=== PATIENT | male | born 1935 | race Caucasian/White ===

== ENCOUNTER 2016-11-10 12:00 | Inpatient (IN) | payer MEDICARE, BC ==
[~2016-11-10] VITALS: Ht 160 cm; Wt 70.0 kg
--- NOTE | ~2016-11-10 | CON ---
PATIENT'S NAME: RAKAN MOORE [facility] AGE: 81 Y [address] ROOM: [id number] [place], [place] [address] [place] [facility] [place]: 11/10/2016 Consultation DISCHARGE DATE: FAMILY PHYSICIAN: Jacki Conteh MD ATTENDING PHYSICIAN: Jacki Conteh DATE OF CONSULTATION: 11/12/2016 HISTORY OF PRESENT ILLNESS: The patient was seen on neurologic consultation at 3:00 p.m. on 11/12/2016. Dr. Conteh asked me to see Mr. Moore who is a long-term patient of hers. Maria Guadalupe is actually high functioning elderly patient with normal mentation and no known history of dementia. According to the patient and the he has been having more frequent falls especially over the past 2 to 3 months. He says that he fell about 3 times. He notices that when he tries to get up, he was unstable and lightheaded. Any attempt to start to walk resulted in him falling backwards and losing his balance. Other than some mild dizziness that has been ongoing for about 2 to 3 years according to the , he never had any issues really with his gait per se and never had any significant falls. The patient was admitted for workup for his worsening gait and currently the medication of tamsulosin has been held due to possibility of its anticholinergic effects may have been attributing to some orthostatic lightheadedness and dizziness and his falls. The patient himself denies any problems with dizziness sitting down nor does he have any focal neurologic weakness in his arms or his legs per se. He denies any pain into his neck or into his low back. 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 This operation was successfully performed back on April 19, 2015. The patient states that after the operation, he was actually walking quite well. He denied any problems with his legs being stiff, weak per se, or any problems with change in his use of his arms or his legs. Continue to use his arms in eating, brushing his teeth, etc. Can move his legs adequately in a seating position, and he does not feel particularly stiffen his legs. Today on physical exam, the patient was sitting up in a chair. His mentation was excellent and we adequately walked the patient around the hallway with the aid of his walker. PRIOR MEDICAL HISTORY: He has significant history for hypertension, hyperlipidemia, coronary artery disease, diabetes type 2. He had a history of some multiple surgeries of his bilateral shoulders. Other admissions in the past included admissions for urinary tract infection with fever and confusion back in March of 2015. History of tonsillectomy, appendectomy, bilateral cataract extraction, bilateral total knee arthroplasty, right shoulder surgery, cardiac catheterization back in 2011. PATIENT'S NAME: RAKAN MOORE [facility] AGE: 81 Y [address] ROOM: [place] [address] [place] [facility] [place]: 11/10/2016 Consultation DISCHARGE DATE: FAMILY PHYSICIAN: Jacki Conteh MD ATTENDING PHYSICIAN: Jacki Conteh PAST SURGICAL HISTORY: Prior surgery included in 2009 he had decompressive diskectomy with osteophytectomy C4-C5 and C5-C6. He did well but required decompressive surgery of his cervical spine in March of 2015. 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 MEDICATIONS: Include: 1. Metoprolol 25 mg p.o. daily. 2. Lisinopril 20 mg p.o. daily. 3. Metformin 500 mg p.o. daily. 4. Pantoprazole 40 mg p.o. daily. 5. Ramelteon 8 mg q.h.s. 6. Multivitamin one tablet p.o. b.i.d. 7. Montelukast 10 mg p.o. q.p.m. 8. Docusate sodium 100 mg p.o. q.h.s. 9. Dabigatran 150 mg twice a day. 10. Atorvastatin 80 mg p.o. daily. 11. Sertraline 25 mg p.o. daily. 12. Fluticasone propionate 2 sprays each nostril daily p.r.n. SOCIAL HISTORY: The patient lives at home with his . They have been for 63 years. 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 This caused him to have his shoulder injury. He denies ever smoking. He denies any alcohol use. He says his mother of cancer at 80 years old. His father of a stroke at 62 years old. ALLERGIES: NO KNOWN DRUG ALLERGIES. REVIEW OF SYSTEMS: Maria Guadalupe is an 81-year-old male patient with normal mental status. No evidence of problems with memory loss. His denies that he has any issues with dementia. He has no history of Parkinson disease or extrapyramidal issue. 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 Even some mild dizziness every now and then. Over the past 2 to 3 years, he has been doing well. Over the past month, he has been having falls. His falls are occurring when he is getting up from a chair, trying to get up to use his walker. He states that he had been feeling lightheaded and he simply was falling backwards. Not particular weakness in PATIENT'S NAME: RAKAN MOORE [facility] AGE: 81 Y [address] ROOM: [address] [address] [place] [facility] [place]: 11/10/2016 Consultation DISCHARGE DATE: FAMILY PHYSICIAN: Jacki Conteh MD ATTENDING PHYSICIAN: Jacki Conteh his arms or his legs though he could not justify why this was occurring since he feels strong otherwise in his arms and his legs when using them in a seated position. Denies any frequency of urination or urinary retention. He denies any recent illnesses. Does have a history of urinary tract infections for which he had admission back in 2016. Otherwise, he has been doing well. Endocrine obrien, he has a history of diabetes well controlled on oral medications. The review of systems is within normal limits. PHYSICAL EXAMINATION: GENERAL: Maria Guadalupe is a healthy appearing, well nourished, 81-year-old male, in no acute distress. His mentation is excellent. He answers all questions appropriately. VITAL SIGNS: His pulse is 95 and regular, respirations 18, blood pressure 138/72, temperature 97.8. HEENT: Cranial nerves 2 through 12 are intact. NECK: Supple on flexion and extension. He has no tenderness on palpation. Full movement of his neck on flexion and extension, and side to side. NEUROLOGIC: I do not appreciate any nystagmus on finger eye follow through. He has good normal smooth pursuits of his eyes. His power in his bilateral upper extremities is essentially 5/5, though he has a bit of give-way weakness in the left upper extremity which he claims is due to weakness at the shoulder only. He has mild tenderness at the glenohumeral joint. He has distal power of his hands and forearms that are completely normal with intrinsic muscles showing normal bulk and tone. No fasciculations. Normal hand fruit i farmworker. Extension and flexion of the wrist and fingers are normal. In his torso, he has normal sensory perception throughout. No evidence of any spinal level anesthesia. He has normal sensation to light touch throughout and his lower extremity power. In a sitting position, he has normal tone of his bilateral lower extremities as well as the upper extremities normal tone. Power was symmetric on hip flexion, leg extension, leg flexion. Dorsiflexion and plantar flexion of both feet are normal. Eversion and inversion also of the feet are normal. Reflexes symmetric and +1 at the biceps, triceps, brachioradialis, patellar reflexes. There is no hyporeflexia of the finger flexions. Patellar reflexes +1. Ankle jerk reflexes are +1. Plantar reflexes are neutral. Position sense is intact at the toes and the patient stance with the aid of the nurse and a supporting belt. The patient easily got up from a seated position without any complaints of dizziness. He leaned forward properly and did not take any stance that suggested that he was unstable or falling back. Initially, his gait was slow and somewhat shuffling, but I told him to lift his feet. After doing that, he lifted his feet properly and he was not dragging. Continued to have a normal posture and stance though walking with the aid of a walker. He was able to gain confidence and walk successfully. He had a tendency to look down. I directed him to look forward which gave him more stability, did not appear to be stiff with his gait and there was no scissoring of his lower extremities seen. The PATIENT'S NAME: RAKAN MOORE [facility] AGE: 81 Y [address] ROOM: [place] [address] [place] [facility] [place]: 11/10/2016 Consultation DISCHARGE DATE: FAMILY PHYSICIAN: Jacki Conteh MD ATTENDING PHYSICIAN: Jacki Conteh patient successfully walked through the room and out into the hallways and continued to have a fairly stable stride that increased inability after purposefully lifting his legs when he walks. IMPRESSION: Mr. Moore has a good neurologic exam and his gait right now is fairly good. He did not demonstrate any problems with falling backwards upon getting up from a seat. Immediately, got into a posture of leaning forward which is for stability and though initially slow, he had good stability after purposely not trying to drag his legs. I did not find anything on exam that suggested spasticity, hyperreflexia to suggest the patient has a problem with the cervical spine or other portion or other signs of myelopathy, so I do not believe that he needs any workup concerning the cervical spine. The result of the brain MRI is consistent with the CAT scan showing confluent atrophy of the brain that is likely consistent with the patient having dilated ventricles. The ventricles do not seem to be out of proportionally large to the amount of atrophy of the brain. Though the extent of the atrophy is severe, not necessarily be odd for the patient's age, and I do not believe that this represents underlying brain pathology. His gait impairment probably is transitory and likely associated, I believe, with the possible medication that had been discontinued. The tamsulosin does have anticholinergic effects and it seems that he is doing better since stopping of this medication. He does not have lightheadedness that he had on the previous days prior to coming to this hospital. I would take the conservative approach currently that is underway by Dr. Conteh and have the patient to continue with the physical therapy as he is doing at home. It is hard to say if the patient's accelerated atrophy is a particular pathology. Certainly, if there is in general improvement with time, the generalized atrophy may in some way explain the patient's slow gait with the use of his walker. Nonetheless, would unlikely be reversible with particular treatment such as a high volume tap. Again the ventricles are enlarged but not out of proportion to the severe amounts of atrophy that is seen on the exam. From a standpoint of the patient's mentation, I think it is excellent and I do not believe that he has early findings of dementia as he scored quite well on orientation. Basic events, short-term memory recall, and testing of executive functioning. Continue to follow Mr. Moore on neurologic followup. MD LINDA BABB/jose elias PATIENT'S NAME: RAKAN MOORE [facility] AGE: 81 Y [address] ROOM: [place] [address] [place] [facility] [place]: 11/10/2016 Consultation DISCHARGE DATE: FAMILY PHYSICIAN: Jacki Conteh MD ATTENDING PHYSICIAN: Jacki Conteh /[id number] d: 11/13/16 1823 t: 11/28/16 1639, CONSULTATION REPORT
--- NOTE | ~2016-11-10 | DS ---
PATIENT'S NAME: REAGAN MOORE [facility] AGE: 81 Y [address] ROOM: [id number] [place], [place] [address] [place]ATION: [facility] [place] ADMIT DATE: 11/10/2016 Discharge Summary DISCHARGE DATE: 11/14/2016 FAMILY PHYSICIAN: Jacki Conteh MD ATTENDING PHYSICIAN: Jacki Conteh PRINCIPAL DIAGNOSES: 1. Recurrent falls. 2. Ataxia. 3. Orthostatic hypotension secondary to Flomax. 4. Memory loss. 5. Urinary retention due to benign prostatic hypertrophy. 6. Severe cerebral atrophy. 7. Paroxysmal atrial fibrillation. 8. Hypertension. 9. Coronary artery disease. 10. Adult-onset diabetes. 11. Degenerative joint disease. SUMMARY: Reagan is an 81-year-old male, who has had 3 recurrent falls in the middle of the night over 2 weeks prior to admission. He has had dizziness. His balance was off, frequent falls, and he was admitted for workup and treatment. He was found to have orthostasis with dizziness. Flomax was discontinued, and Myrbetriq was discontinued, and his pressures were followed. Also workup to look for new CVA or new cardiac condition was performed. Serial enzymes were normal. CT scan of the brain negative for bleed. MRI negative for CVA. He required skilled physical therapy, occupational therapy, and speech therapy while in the hospital for safety reasons. He had improvement in his strength. His balance is still poor. He requires four- wheeled walker with a standby assist at this time. Orthostasis is improved. Dizziness is much improved. He required placement of a Thacker catheter due to urinary retention and that has remained in throughout the hospital stay, that cleared his urinary frequency and difficulty with sleeping at night. Urology consultation was performed. They are planning an outpatient cystoscopy since he requests them to help remedy that problem. Cardiology consultation was performed. An echocardiogram was negative. Telemetry was normal. No further intervention regarding cardiac care at this time. Neurology consult was performed and showed no evidence of an acute CVA. He had improvement in his symptoms. Did not have any falls while here but did have a four-wheeled walker and standby assist with gait belt at all times. Appetite good. Sugars followed and were satisfactory. At this time, he is cleared to be dismissed to go to skilled living facility, and he is going to [facility]. Inpatient stay was warranted for treatment of the orthostasis and watching his vitals after discontinuing medication and then arrangements were made. He was medically stable to be dismissed on 11/13/2016, but the [facility] was unable to take PATIENT'S NAME: REAGAN MOORE [facility] AGE: 81 Y [address] ROOM: [place] [address] LOCATION: [facility] [place] ADMIT DATE: 11/10/2016 Discharge Summary DISCHARGE DATE: 11/14/2016 FAMILY PHYSICIAN: Jacki Conteh MD ATTENDING PHYSICIAN: Jacki Conteh [facility] until 11/14/2016. DISMISSAL: Reagan dismissed on 11/14/2016 in improved condition. ACTIVITY: Will be weightbearing as tolerated with a four-wheeled walker and gait belt and standby assist. He will be continued to receive PT, OT, and speech therapy. FOLLOWUP: He will follow up with Dr. Lynne on 11/16/2016 and 11/17/2016 for an outpatient cystoscopy and further treatment of urinary retention per Dr. Lynne. He will follow up with Dr. Arevalo per his recommendation, and then I will plan to see him in a month. DISMISSAL MEDICATIONS: 1. Lipitor 80 mg q.h.s. 2. Pradaxa 150 mg b.i.d. 3. Colace 100 mg at h.s. 4. Lisinopril 20 mg daily, but hold if systolic pressure less than 110. 5. Glucophage XR 500 mg daily with food. 6. Metoprolol succinate 25 mg daily, hold if systolic pressure less than 120. 7. Singulair 10 mg daily. 8. Multivitamin daily. 9. Protonix 40 mg daily for GERD/GI upset. 10. Remeron 8 mg at h.s. to help with insomnia. 11. Sertraline 25 mg daily for depression. 12. Tylenol 650 q.4 hours p.r.n. pain or 500 mg q.6 hours p.r.n. pain. 13. Flonase 2 sprays each naris daily p.r.n. 14. Amoxicillin 2000 mg p.o. prior to dental work. 15. He was off Flomax, also off Myrbetriq. Ideally, urinary retention can be remedied and then consideration for getting back home once he is safe. He will be re-evaluated every 7 days at [facility] regarding his skilled care. PROGNOSIS: Fair to good. MD ANTHONY CASTELLON/jose elias /[id number] d: 11/15/16 0233 t: 11/24/16 0809, DISCHARGE SUMMARY
--- NOTE | ~2016-11-10 | CON ---
PATIENT'S NAME: OSCAR RAKAN [facility] AGE: 81 Y [address] ROOM: [address] [place], [place] [address] LOCATION: [facility] [place] ADMIT DATE: 11/10/2016 Consultation DISCHARGE DATE: FAMILY PHYSICIAN: Jacki Conteh MD ATTENDING PHYSICIAN: Jacki Conteh DATE OF CONSULTATION: 11/11/2016 CHIEF COMPLAINT: Urinary retention. HISTORY OF PRESENT ILLNESS: The patient is a pleasant 81-year-old male who is currently admitted for further evaluation of dizziness, lightheadedness, and frequent falls. He does have a history of BPH for which he has been taking tamsulosin 0.4 mg daily. He also has a history of lower urinary tract symptoms including urinary urgency, frequency, and nocturia and had apparently also been taking some Myrbetriq, which is currently on hold. He does have a significant cardiac history and remains on anticoagulation with Pradaxa. He also has a history of atrial fibrillation. The patient denies any previous surgery for his prostate. There is no reported personal or family history of prostate cancer. The patient denies any gross hematuria. Upon this admission, he was noted to have elevated postvoid residuals, and ultimately, a Thacker catheter was placed with clear yellow urine output with over 300 mL residual. The patient has no further questions or concerns at this time. PAST MEDICAL HISTORY: 1. Atrial fibrillation. 2. Cervical spinal stenosis. 3. Diabetes mellitus. 4. Osteoarthritis. 5. Hyperlipidemia. 6. Hypertension. PAST SURGICAL HISTORY: 1. Tonsillectomy. 2. Appendectomy. 3. Bilateral cataract surgeries. 4. Bilateral total knee surgeries. 5. Shoulder surgery. 6. Placement of pain pump. 7. Neck surgery. 8. Laminectomy. FAMILY HISTORY: PATIENT'S NAME: OSCAR GUTHRIE [facility] AGE: 81 Y [address] ROOM: [facility] [place] [place], [place] [address] LOCATION: [facility] [place] ADMIT DATE: 11/10/2016 Consultation DISCHARGE DATE: FAMILY PHYSICIAN: Jacki Conteh MD ATTENDING PHYSICIAN: Jacki Conteh The patient denies any known family history of genitourinary abnormalities. SOCIAL HISTORY: The patient lives at home with his . He has never smoked and does not use any alcohol. ALLERGIES: NO KNOWN DRUG ALLERGIES. MEDICATIONS: See hospitalization medication reconciliation. REVIEW OF SYSTEMS: A full 10+ point review of systems was performed with pertinent positive and negative findings included in the History of Present Illness. All other systems were reviewed and are otherwise negative. PHYSICAL EXAMINATION: VITAL SIGNS: Stable. CONSTITUTIONAL: The patient is in no acute distress. He is awake and oriented. HEENT: Extraocular muscles intact. Mucous membranes moist. No drainage per ears and nose. CARDIAC: Good peripheral perfusion. RESPIRATORY: No audible wheezing. ABDOMEN: Benign. GENITOURINARY: Indwelling Thacker catheter draining clear yellow urine output. Digital rectal exam deferred today. MUSCULOSKELETAL: Moves all extremities. PSYCHIATRIC: Normal affect, and answers questions appropriately. HEMATOLOGIC: No active sites of bleeding noted. IMPRESSION: 1. Benign prostatic hypertrophy with bladder outlet obstruction. 2. Urinary retention. 3. Lower urinary tract symptoms including urinary urgency, frequency, and nocturia. PLAN: I had a long discussion with the patient regarding my findings. Given his continued difficulties with dizziness and falls, I would be somewhat hesitant on putting him back on tamsulosin given the potential side effects including the above symptoms. Also, given his urinary retention, I agree on holding the Myrbetriq. For now, I would recommend leaving the Thacker catheter indwelling, and we will plan to see him back in Urology Clinic as an outpatient either PATIENT'S NAME: RAKAN MOORE [facility] AGE: 81 Y [address] ROOM: [place] [address] LOCATION: [facility] [place] ADMIT DATE: 11/10/2016 Consultation DISCHARGE DATE: FAMILY PHYSICIAN: Jacki Conteh MD ATTENDING PHYSICIAN: Jacki Conteh November 16 or for a cystoscopy to get a better sense of the degree of his bladder outlet obstruction. Given his persistent symptoms despite pharmacologic therapy including urinary urgency, frequency, and nocturia, he will likely be a candidate for intervention regarding his BPH including possible UroLift procedure, transurethral resection of prostate, versus photovaporization of prostate with laser. Given his age and cardiac history, hopefully, he will be a candidate for the UroLift procedure which can be performed in the office setting without any general anesthetic and typically without any need for catheter following the procedure. If he does undergo intervention for his prostate, we will likely be able to get him off his prostate and bladder medications. He will also ultimately need clearance from a cardiac standpoint to make sure that he is able to come off his Pradaxa prior to the procedure if he is a candidate for intervention for his BPH. Please do not hesitate to call with any questions or concerns. VERITO WHITTAKER MD GP/jose elias /[id number] CC: Jacki Conteh MD d: 11/11/16 1337 t: 11/15/16 1007, CONSULTATION REPORT
--- NOTE | ~2016-11-10 | ECHO ---
Transthoracic Echocardiography Report (TTE) Demographics Patient Name RAKAN MOORE Date of Study 11/13/2016 Patient Number [id number] Visit Number [id number] Date of 1935 Room Number G3219 Gender Male Number Age 81 year(s) Referring Wero Quezada MD Planning Manager Cheikh Dawkins RDCS, RVT, Physician RDMS, DERRICK CAR OPERATOR Physician Interpreting Efstratiou Panayotis A Carpenter Rough Physician MD Supervising Ordering Efstratiou Panayotis A MD/MLP Physician MD Nurse Stress Machine Tester Conclusions Summary Technically difficult exam. The estimated left ventricular ejection fraction is 55-60%. Moderate concentric left ventricular hypertrophy. The left atrium is mildly dilated. Trivial mitral regurgitation by color Doppler. Mild to moderate mitral annular calcification. Mild to moderate calcification of the mitral valve. The aortic valve is mildly sclerotic. Focal calcification on the right coronary cusp. There is trivial aortic regurgitation by color Doppler. There is mild pulmonary hypertension. The pulmonary pressure (RVSP) is 37 mmHg. Trivial tricuspid regurgitation by color Doppler. Normal right atrial size. The interatrial septum appears aneurysmal. Procedure Type of Study TTE procedure:2D Echocardiogram, M-Mode, Doppler , Color Doppler. Procedure Date Date: 11/13/2016 Start: 10:04 AM Study Location: Inpatient Portable Technical Quality: Poor visualization due to lung interference. Additional Indications:CAD, AFIB Appropriate Use Criteria: 9 Patient Status: Routine HR: 82 bpm BP: 143/77 mmHg Allergies - No known allergies. M-Mode/2D Measurements LV Diastolic Dimension: 3.84 cm LV Systolic Dimension: 2.58 cm LV Septum Diastolic: 1.45 cm LV PW Diastolic: 1.35 cm AO Root Dimension: 3.1 cm Cardiac Output: 3.88 l/min AV Cusp Separation: 1.5 cm RV Diastolic Dimension: 2.24 cm LA volume: 53 ml LVOT: 1.9 cm RV Base: 2.9 cm LVOT VTI: 16.7 cm RV Mid: 2.5 cm LV Stroke volume: 47.33 ml TAPSE: 1.7 cm TDI-S': 12 cm/s Doppler Measurements AV Peak Velocity: 1 m/s MV Peak E-Wave: 0.5 m/s AV Peak Gradient: 4 mmHg MV Peak A-Wave: 0.98 m/s AV Mean Gradient: 2 mmHg MV E/A Ratio: 0.51 LVOT Peak Velocity: 0.77 m/s MV P1/2t: 130 msec TR Gradient:29.16 mmHg PV Peak Velocity: 0.87 m/s Estimated RAP:8 mmHg PV Peak Gradient: 3.05 mmHg Estimated RVSP: 37 mmHg Estimated PASP: 37.16 mmHg E' Septal Velocity: 0.09 m/s E' Lateral Velocity: 0.1 m/s Findings Left Ventricle The left ventricle is normal in size . Moderate concentric left ventricular hypertrophy. Diastolic function indeterminate due to patient's arrhythmia. Paradoxical septal motion . Normal left ventricular systolic function. Right Ventricle Normal right ventricle structure and function. Left Atrium The left atrium is mildly dilated. Right Atrium Normal right atrial size. The interatrial septum appears aneurysmal. Mitral Valve Trivial mitral regurgitation by color Doppler. Mild to moderate mitral annular calcification. Mild to moderate calcification of the mitral valve. Aortic Valve The aortic valve is mildly sclerotic. Focal calcification on the right coronary cusp. There is trivial aortic regurgitation by color Doppler. Tricuspid Valve Normal appearing tricuspid valve. There is mild pulmonary hypertension. The pulmonary pressure (RVSP) is 37 mmHg. Trivial tricuspid regurgitation by color Doppler. Pulmonic Valve Pulmonic valve is not well seen. Pericardial Effusion No evidence of pericardial effusion. Miscellaneous Visualized portions of the aortic root and ascending aorta appear normal in size. Pleural Effusion No evidence of pleural effusion. Signature dtt: Jossy Arevalo dtd: 11/13/16 1004 Physician Self Edit
--- NOTE | ~2016-11-10 | CON ---
PATIENT'S NAME: RAKAN MOORE [facility] AGE: 81 Y [address] ROOM: [place] [address] LOCATION: [facility] – [place] ADMIT DATE: 11/10/2016 Consultation DISCHARGE DATE: FAMILY PHYSICIAN: Jacki Conteh MD ATTENDING PHYSICIAN: Jacki Conteh REFERRING PHYSICIAN: Jacki Conteh MD CARDIOLOGY CONSULT REASON FOR CONSULTATION: Chest heaviness, history of coronary artery disease. HISTORY OF PRESENT ILLNESS: The patient is an 81-year-old man, who lives at home and is admitted because recently he has become unsteady and has suffered 3 falls. His is in the room and confirms that the patient appears to lose his balance as he ambulates with his walker and falls backwards. Thankfully, he has not had any serious injury so far. He denies chest pain, but he has occasional episodes of chest heaviness. He has a productive cough. He denies really losing consciousness but admits of getting lightheaded. PAST MEDICAL HISTORY: He had a left heart catheterization in 2011 that showed an isolated 50% stenosis of the right coronary artery. No significant stenosis on the left system and ejection fraction of 60%. In 2016, he had an episode of unexplained bacteremia. 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 He has a history of paroxysmal atrial fibrillation, and he is being on chronic anticoagulation with Pradaxa. History of benign prostatic hypertrophy, dyslipidemia, and diabetes type 2. CURRENT MEDICATIONS: 1. Colace 100 mg at bedtime. 2. Flomax 0.4 mg daily. 3. Lipitor 80 mg daily. 4. Pradaxa 150 mg twice a day. 5. Singulair 10 mg at bedtime. 6. Theravite 1 tablet twice a day. 7. Zoloft 25 mg daily. 8. NovoLog, he was placed on mild sliding scale on admission. PREVIOUS SURGERIES: Tonsillectomy, appendectomy, bilateral cataract, bilateral total knee, shoulder surgery, and pain pump. FAMILY HISTORY: PATIENT'S NAME: RAKAN MOORE [facility] AGE: 81 Y [address] ROOM: [place] [address] LOCATION: [facility] – [place] ADMIT DATE: 11/10/2016 Consultation DISCHARGE DATE: FAMILY PHYSICIAN: Jacki Conteh MD ATTENDING PHYSICIAN: Jacki Conteh His father had a cerebrovascular accident. His mother had colon cancer. SOCIAL HISTORY: The patient lives at home with his . He is a never smoker and does not use any alcohol. REVIEW OF SYSTEMS: Negative except what is noted in the history of present illness. PHYSICAL EXAMINATION: VITAL SIGNS: He is 5 feet 3 inches, weighs 68 kg, blood pressure on admission is 171/93, pulse is 60, temperature 98.1. GENERAL: He is alert and oriented. HEAD: Normocephalic and atraumatic. NECK: Supple. There is no jugular venous distention. No carotid bruits. LUNGS: He has a productive cough. Lungs have rhonchi bilateral. HEART: Regular first and second heart sounds. No significant murmur. ABDOMEN: Soft, nontender. LOWER EXTREMITIES: No peripheral edema. DATA: His electrocardiogram shows sinus rhythm, no acute repolarization changes. Complete metabolic screen is unremarkable. Initial troponin I is negative. TSH is 2.9. D-dimer is 0.36. Complete blood count is also unremarkable. Chest x-ray, normal heart size. Mild scaring in the left base. IMPRESSION: 1. Chest discomfort, possibly angina, possible chronic obstructive pulmonary disease, does not have high-risk characteristics. 2. Recurrent falls, relative bradycardia. 3. History of paroxysmal atrial fibrillation, maintaining sinus rhythm, anticoagulation with dabigatran. PLAN: We will repeat his echocardiogram, serial enzymes, orthostatics. Possibly a pharmacologic stress test. Thank you for allowing [facility] participate in the care of your patient. ROLAND ANDREWS MD PATIENT'S NAME: RAKAN MOORE [facility] AGE: 81 Y [address] ROOM: [address] [address] LOCATION: [facility] – [place], [place] ADMIT DATE: 11/10/2016 Consultation DISCHARGE DATE: FAMILY PHYSICIAN: Jacki Conteh MD ATTENDING PHYSICIAN: Jacki Conteh PE/modl /[id number] d: 11/10/16 2317 t: 11/13/16 1106, CONSULTATION REPORT
[~2016-11-10 12:00] MED LIST: AMOXICILLIN500 M1 PO; CENTRUM SILVER1 EAC1 PO; COLACE100 MG PO; FLOMAX0.4 MG PO; FLONASE 50 MCG/16 GM NOSE; GLUCOPHAGE XR500 M1 PO; LEVAQUIN500 MG PO; LIPITOR80 MG PO; LISINOPRIL-HCT1 EAC1 PO; MILK OF MA400 MG/5 M PO; MOBIC15 MG PO; PERCOCET 5-3251 EACH PO; PRADAXA150 MG PO; PRESERVISION A1 EACH PO; PRESERVISION L1 EACH PO; PRILOSEC20 MG; PRILOSEC20 MG PO; PRINIVIL (ZESTR20 MG PO; PRINIVIL OR ZES10 MG PO; PROTONIX40 MG PO; ROZEREM8 MG PO; SINGULAIR10 MG PO; TOPROL XL25 MG PO; TYLENOL EXTRA500 MG PO; ULTRAM50 MG PO
--- NOTE | 2016-11-10 14:00 | NUR ---
A 81 yr old male admitted for Dr Conteh for dizziness, frequent falls and confusion. Patient alert and oriented x 3 upon admission. No known allergies. Hx of bilateral knee replacement, implanted pain pump, shoulder and neck surgery plus numerous other surgeries. Patient has a hx of A fib and HTN and is a diabetic.
[2016-11-10] MEDS ORDERED: ZOLOFT25 MG PO (14:25)
[2016-11-10 17:31] LABS: HEMATOCRIT 37.3 % (33.0-50.0); HEMOGLOBIN 13.5 g/dL (11.0-16.0); MCH 34.4 pg (27.0-34.0); MCHC 36.2 gm/dL (32.0-36.5); MCV 94.9 fl (83.0-98.0); MPV 8.9 fl (9.4-12.4); PLATELET COUNT 139 K/uL (150-450); RBC 3.93 M/uL (3.50-5.50); RDW-CV 12.9 % (11.9-14.6); WBC 12.8 K/uL (4.0-11.0)
[2016-11-10 17:52] LABS: BILIRUBIN URINE NEGATIVE (NEGATIVE); BLOOD URINE 10 /UL (NEGATIVE); COLOR URINE STRAW (YELLOW); GLUCOSE URINE NEGATIVE (NEGATIVE); KETONE URINE NEGATIVE (NEGATIVE); LEUKOCYTES URINE NEGATIVE /UL (NEGATIVE); NITRITE URINE NEGATIVE (NEGATIVE); PROTEIN URINE NEGATIVE (NEGATIVE); TURBIDITY URINE CLEAR (CLEAR); UROBILINOGEN URINE NORMAL (NORMAL)
[2016-11-10 17:56] LABS: ALBUMIN 3.9 gm/dL (3.5-5.0); ALK PHOS 70 IU/L (33-138); ALT 24 IU/L (12-78); ANION GAP 11.5 (10.0-19.0); AST 20 IU/L (10-40); BLOOD UREA NITROGEN 11 mg/dL (6-24); CALCIUM 8.8 mg/dL (8.5-10.5); CHLORIDE 100 mMol/L (96-110); CO2 27 mMol/L (22-32); CPK 88 IU/L (35-332); CREATININE 0.9 mg/dL (0.6-1.3); POTASSIUM 4.5 mMol/L (3.7-5.1); SODIUM 134 mMol/L (135-145); TOTAL BILIRUBIN 0.7 mg/dL (0.0-1.5); TOTAL PROTEIN 6.8 g/dL (6.0-8.4)
[2016-11-10 18:05] LABS: BACTERIA URINE NEGATIVE (NEGATIVE); EPITHELIAL URINE RARE #/HPF (NEGATIVE); WBC URINE NEGATIVE #/HPF (NEGATIVE)
[2016-11-10 18:17] LABS: ABSOLUTE NEUTROPHIL CT (ANC) 4.1 K/uL (1.4-9.0); LYMPHOCYTE # 7.7 K/uL (0.8-4.0); LYMPHOCYTE % 60 %; MONOCYTE # 0.6 K/uL (0.0-1.0); SEGMENTED NEUTROPHIL # 4.1 K/uL (1.4-9.0); SEGMENTED NEUTROPHIL % 32 %
--- NOTE | 2016-11-10 19:37 | NUR ---
Significant Event: Patient admitted at [address] office for frequent falls at home, dizziness and confusion. Patients states that he fell early this morning with no injury. Patient alert and oriented. Up to the bathroom frequently to void. Patient voiding in 100 ml amounts of clear yellow urine with a bladder scan post void of [address] Conteh notified and a martinez catheter was placed at 1730 and a Urology consult was ordered. CT scan of head done but the MRI will have to be done tomorrow due to patient having an implanted pain pump. Accucheck prior to dinner was 105 with no sliding scale insulin needed. Cardiac and Neurology to consult. Telemetry ordered. Follow up: [facility] [employer] to place pain pump on same mode for MRI of head.
--- NOTE | 2016-11-11 07:10 | NUR ---
Significant Event: A/O X3, FORGETFUL. BED ALARMS ON FOR SAFETY, DOES CALL APPROPRIATELY. IS VERY [place] AND WEAR BILAT HEARING AIDS. DID ORTHOSTATIC B/P THIS SHIFT AND ARE NOTED IN CHART; PATIENT DID STATE THAT HE WAS DIZZY THE ENTIRE TIME DOING THE ORTHOSTATIC B/P. ON TELE AND NO CALLS. VSS AND AFEBRILE. NEUROLOGY AND UROLOGY TO SEE. IS TO HAVE MRI THIS AM, PAIN PUMP IS SAID TO GO INTO SAFE MODE WHEN IN MRI FIELD. AC/HS ACCUCHECKS AND WAS 176 LAST NIGHT FOR NO COVERAGE NEEDED. TOOK MEDS WHOLE WITH WATER. IV TO R) FA. SCHMIDT DRAINING CLEAR YELLOW URINE. SLEPT WELL THROUGH NIGHT. Follow up:
--- NOTE | 2016-11-11 16:32 | NUR ---
SIgnificant event: Up to chair, and up to BR with one assist, gait belt and walker needs reminding to slow down. Tylenol this am for pain. Appetite good. MRI of head done this am. Alert and oriented.
--- NOTE | 2016-11-12 04:14 | NUR ---
Significant Event: Patient alert and oriented X4. Forgetful. Up with one asisst, walker and gait belt. Thacker in place, 550 out. Vitals stable and on room air. Tele on no calls. IV saline locked to R) forearm. ACHS accuchecks. No PRN meds given. Follow up: Monitor pain
--- NOTE | 2016-11-12 17:10 | NUR ---
Significant event: Up in room with one assist, gait belt and walker. Gait is steady, he is walking slower today than yesterday. Denies pain. Thacker draining clear yellow urine. No calls from telemetry.
--- NOTE | 2016-11-13 04:31 | NUR ---
Significant Event: Patient alert and oreinted X4. Up with one assist, walker and gait belt. Thacker in place. small hard BM this shift. ON colace and prune juice given. R) forearm IV saline lock. ACHS accuchecks. Fell on 11/10 at home. Patient complaining of continued weakness. Hard of hearing. Bilat hearing aids charging in chair. POssible detention placement? Unsure if pt and know about this? Telemetry on no calls. Cooperative with cares. Follow up: Monitor pain
--- NOTE | 2016-11-13 14:25 | NUR ---
RECEIVED REFERRAL TO [facility]RANGE FOR PATIENT TO GO TO THE [facility]. SPOKE TO PATIENT'S SPOUSE SHE IS IN AGREEMENT TO PATIENT GOING TO THE [facility]. I NOTIFIED THE [facility] AND SPOKE TO JEB GU D.O.N SHE REPORTS THAT THEY HAVE A MALE BED. AND THAT THEY HAVE BEEN PLANNING ON HIM COMING. SHE REPORTS THAT THEY CAN COME GET HIM TOMORROW. SHE WILL GET BACK TO ME WITH THE TIME THAT THEY WILL COME TO GET PATIENT. WILL FAX INFO TO HER FOR REVIEW.
--- NOTE | 2016-11-13 15:44 | NUR ---
SPOKE TO RAKAN AND HIS SPOUSE SUMI AT THE BEDSIDE. UPDATED THEM THAT RAKAN HAS BEEN ACCEPTED TO THE [facility]. SUMI WOULD LIKE TO TRANSPORT RAKAN VIA PRIVATE CAR AND SHE WILL BE HERE AT [address]. [address] VIOLETTE ZARATE TO LEAVE A MESSAGE WITH HER NURSE AND SHE WILL UPDATE DR. OAKES. I ATTEMPTED TO UPDATE JEB AT THE [facility] BUT HAD TO LEAVE A MESSAGE ON HER VOICE MAIL,WITH THE UPDATE.
--- NOTE | 2016-11-13 17:04 | NUR ---
Significant Event: Patient up in the chair throughout the day. Up and ambulated to and from bathroom with 1 assist and did work with phyisical therapy when they came in to see patient. Denies pain. Did have fun watching the eclipse this afternoon. Thacker in place draining clear yellow urine. Patient needs reminders to follow what therapy has taught him about staying up with the walker and reaching back for the chair prior to sitting down. Patient to go to the longterm in the morning. will be here at 1000 to transport patient to longterm. Follow up: Continue to monitor.
--- NOTE | 2016-11-14 03:29 | NUR ---
SIGNIFICANT EVENT: Patient alert, oriented prior to HS. Did attempt set off chair alarm attempting to get to bed by himself. Hard of hearing - hearing aides are charging by couch. LAKISHA yates, Mild SS - 202 HS BG required 2 units. Kirstie patent. Plan is to discharge to [facility] via private auto at 10 a.m. on 11/14/17. Pleasant and cooperative with cares.
--- NOTE | 2016-11-14 09:43 | NUR ---
D: Patient vital signs stable patient afebrile. Patient continues to be alert and orientated but forgetful at times. Is up in room with one assistance, gait belt, and walker. Patient intake and output adequate. Patient does have some abrasions/scabs to elbows. Has been working with physical therapy and did have a shower this am with occupational therapy. Patient does have an indwelling martinez catheter that is intact and draining yellow clear urine. Patient is to have the catheter remain per physician order.
--- NOTE | 2016-11-14 10:53 | NUR ---
D: REPORT CALLED TO [facility].
== END 2016-11-14 10:25 | DRG 92 ==
LOC: GMSU 12:09
PROVIDERS: ADMIT Family Medicine
PROC: 0T9B70Z Drainage of Bladder with Drainage Device, Via Natural or Artificial Opening (ICD-10-PCS; principal; 2016-11-10)
DX: R26.0 Ataxic gait (principal); N13.8 Other obstructive and reflux uropathy; I48.0 Paroxysmal atrial fibrillation; E11.9 Type 2 diabetes mellitus without complications; Z91.81 History of falling; N40.1 Benign prostatic hyperplasia with lower urinary tract symptoms; R33.8 Other retention of urine; I10 Essential (primary) hypertension; I95.1 Orthostatic hypotension; M19.90 Unspecified osteoarthritis, unspecified site; Z79.01 Long term (current) use of anticoagulants; I25.10 Atherosclerotic heart disease of native coronary artery without angina pectoris; K21.9 Gastro-esophageal reflux disease without esophagitis
CPT/HCPCS: J2001